=== PATIENT | male | born 1965 | race Caucasian/White ===

== ENCOUNTER 2019-07-18 15:59 | Emergency (ER) | payer BC ==
[~2019-07-18] VITALS: Ht 182.9 cm; Wt 88.5 kg
[2019-07-18 16:20] VITALS: Ht 182.9 cm; Wt 88.5 kg
[2019-07-18 18:27] VITALS: BP 138/72
== END 2019-07-18 18:27 | disposition home or self-care (01) ==
LOC: ED 15:59
DX: S00.03XA Contusion of scalp, initial encounter (principal); I48.91 Unspecified atrial fibrillation; I10 Essential (primary) hypertension; X58.XXXA Exposure to other specified factors, initial encounter; Y93.89 Activity, other specified; Y92.89 Other specified places as the place of occurrence of the external cause; Y99.8 Other external cause status

== ENCOUNTER 2019-07-20 12:23 | Emergency (ER) | payer OTHER ==
[~2019-07-20] VITALS: Ht 182.9 cm; Wt 88.5 kg
[2019-07-20 12:45] VITALS: Ht 182.9 cm; Wt 88.5 kg
[2019-07-20 14:30] VITALS: BP 105/64
== END 2019-07-20 14:30 | disposition home or self-care (01) ==
LOC: ED 12:23
DX: S01.01XA Laceration without foreign body of scalp, initial encounter (principal); I10 Essential (primary) hypertension; Z94.0 Kidney transplant status; W17.89XA Other fall from one level to another, initial encounter; Y93.89 Activity, other specified; Y92.89 Other specified places as the place of occurrence of the external cause; Y99.8 Other external cause status
CPT/HCPCS: J2001